=== PATIENT | female | born 1945 | race Caucasian/White ===

== ENCOUNTER 2024-11-03 05:53 | Day surgery (SDC) | payer MEDICARE, OTHER, SELFPAY ==
--- NOTE | 2024-10-10 13:10 | CM ---
CM reviewed medical records. Patient confirmed demographics. Patient lives independently with who will be her support post operatively. Patient is active with her PCP. Patient has medication coverage and uses [facility] [place]. Patient has a
walker, raised toilet seat and cane.
CM discussed home care post operatively.
PLAN: Home with AVIS NEUMANN
[2024-10-15 11:21] LABS: Hematocrit 41.9 % (37.0-47.0); Hemoglobin 14.0 g/dL (12.0-16.0); Mean Corp Hgb Conc. 33.4 g/dL (33.0-37.0); Mean Corpuscular Volume 93.5 fL (81.0-99.0); Platelet Count 279 10^3/uL (130-400); Red Cell Dist. Width 12.7 % (11.5-14.5)
[2024-10-15 11:46] LABS: ALT (SGPT) 17 U/L (0-35); AST (SGOT) 23 U/L (14-36); Albumin 4.3 g/dl (3.5-5.0); Alkaline Phosphatase 68 U/L (38-126); Blood Urea Nitrogen 18 mg/dl (7-17); Calcium 9.9 mg/dl (8.4-10.2); Carbon Dioxide 29 mmol/L (22-30); Chloride 104 mmol/L (98-107); Glucose 83 mg/dl (70-99); Potassium 4.9 mmol/L (3.5-5.1); Sodium 139 mmol/L (135-145); Total Protein 7.4 g/dl (6.3-8.2); eGFR > 60.00
[2024-10-15 12:34] LABS: Glycohemoglobin (HgbA1c) 5.6 % (4.0-5.6)
[2024-10-15 14:10] VITALS: BMI 28.5
[2024-10-15 14:46] VITALS: BMI 28.5
--- NOTE | 2024-10-22 09:41 | VNURNOTE ---
Addendum entered by Lo Soliman RN 10/22/24 09:59:
Rec'ed call back. Patient is scheduled for an elective R TKA on 11/03- she is a same day patient with Dr Blank Spoke with patient prior to surgery. Introduced role of [facility] Liaison. Patient reports that she lives with spouse in a MULTI story
home.
There are 2 steps to enter and a flight of steps to the second floor.
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 She has a raised toilet seat, cane and rolling walker, shower chait.
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
PCP is Dr Upton
Discussed [facility] joint protocol and post surgical plans.
Reviewed that she will have VN services initially and will then start outpatient PT.
Patient selects [facility] for home care needs and will go to [facility] for outpatient PT. Scheduled for 11/06 .
Patient is in agreement with plan and states that her spouse will be home with her. Advised to bring RW with her day of surgery.
Plan: [facility] per [facility] joint protocol 11/03 then outpt PT on 11/06
Original Note:
[facility] liaison placed call x 2 to patient to discuss VN, home PT services. Left message.
[facility] referral accepted in [facility].
[2024-11-03] VITALS (10 sets, daily range): BP systolic 107–134; BP diastolic 46–79
[2024-11-03] MEDS: CELEBREX 200 MG PO (06:21)
[2024-11-03] MEDS: NORMOSOL-R/PLASMALYTE-A 1000 IV ×2 (06:31→09:45)
--- NOTE | 2024-11-03 07:12 | W.DS.TRANS ---
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
-
Discharge Instructions:
Sleep Apnea Risk Low
Discharge Diagnosis/Procedures R TKA Dr. Tapia 11/03/24
Diet As tolerated
Activity With Walker
Driving Restrictions No driving
Bathing Restrictions OK to Shower
Other Services PT
Instructions:
Stand-Alone Forms: SDS Total Hip and Knee D/C
Changes to Home Medications: Yes
Discharge Medications:
DC Medications w/original date entered in [facility]
atorvastatin 40 mg tablet 40 mg PO HS 10/14/24
levothyroxine 88 mcg tablet 88 mcg PO DAILY 10/14/24
multivitamin with minerals 1 cap PO DAILY 10/14/24
omega 5-mwi-boc-fish oil 1,000 mg (120 mg-180 mg) capsule (Fish Oil) 3 cap PO DAILY 10/14/24
Held on 11/03/24. Instructions: Resume on 11/11/24.
celecoxib 200 mg capsule (Celebrex) 200 mg PO DAILY #14 caps 10/15/24
dexamethasone 4 mg tablet 4 mg PO BID Anti-inflammatory #7 tabs 10/15/24
famotidine 20 mg tablet (Pepcid) 20 mg PO HS #30 tabs 10/15/24
gabapentin 300 mg capsule 300 mg PO HS neuropathic pain/sleep #10 caps 10/15/24
morphine 15 mg immediate release tablet 15 mg PO Q6H PRN severe pain #25 tabs 10/15/24
mupirocin 2 % topical ointment 1 applic intranasal BID #1 tube 10/15/24
ondansetron HCl 4 mg tablet 4 mg PO Q6H PRN nausea and vomiting #30 tabs 10/15/24
aspirin 325 mg tablet 325 mg PO DAILY blood clot prevention #1 tab 11/03/24
docusate sodium 100 mg capsule (Colace) 100 mg PO BID stool softner #1 cap 11/03/24
magnesium hydroxide 400 mg/5 mL oral suspension (Milk of Magnesia) 30 ml PO HS PRN constipation #1 mL 11/03/24
sennosides 8.6 mg tablet (Senokot) 17.2 mg (2 x 8.6 mg) PO BID laxative #2 tabs 11/03/24
Home Medication Changes
celecoxib 200 mg capsule (Celebrex) 200 mg PO DAILY #14 caps 10/15/24
dexamethasone 4 mg tablet 4 mg PO BID Anti-inflammatory #7 tabs 10/15/24
famotidine 20 mg tablet (Pepcid) 20 mg PO HS #30 tabs 10/15/24
gabapentin 300 mg capsule 300 mg PO HS neuropathic pain/sleep #10 caps 10/15/24
morphine 15 mg immediate release tablet 15 mg PO Q6H PRN severe pain #25 tabs 10/15/24
mupirocin 2 % topical ointment 1 applic intranasal BID #1 tube 10/15/24
ondansetron HCl 4 mg tablet 4 mg PO Q6H PRN nausea and vomiting #30 tabs 10/15/24
aspirin 325 mg tablet 325 mg PO DAILY blood clot prevention #1 tab 11/03/24
docusate sodium 100 mg capsule (Colace) 100 mg PO BID stool softner #1 cap 11/03/24
magnesium hydroxide 400 mg/5 mL oral suspension (Milk of Magnesia) 30 ml PO HS PRN constipation #1 mL 11/03/24
sennosides 8.6 mg tablet (Senokot) 17.2 mg (2 x 8.6 mg) PO BID laxative #2 tabs 11/03/24
Pending Results: No
[2024-11-03] MEDS: ANCEF 5 IV (11:05)
== END 2024-11-03 12:50 | disposition home or self-care (01) ==
LOC: SDS 05:53
PROVIDERS: ATTENDING PHYSICIAN Specialist; FAMILY PHYSICIAN Family Medicine; OTHER PHYSICIAN Physician Assistant
DX: M17.11 Unilateral primary osteoarthritis, right knee (principal); M48.061 Spinal stenosis, lumbar region without neurogenic claudication
CPT/HCPCS: 27447; 36415; 73560; 80053; 83036; 85027; 87070; 93005; 97162; C1713; C1776